=== PATIENT | male | born 1955 | race Two or more races ===

== ENCOUNTER 2020-02-04 10:09 | Emergency (ER) | payer OTHER ==
[~2020-02-04] VITALS: Ht 180.3 cm; Wt 79.4 kg
[2020-02-04] MEDS ORDERED: RAYOS5 MG (10:18)
[2020-02-04] MEDS ORDERED: METROTEZATE (10:19)
== END 2020-02-04 20:35 | disposition home or self-care (01) ==
LOC: ER 10:09
DX: U07.1 COVID-19 (principal); J12.89 Other viral pneumonia